=== PATIENT | male | born 1960 | race Caucasian/White ===

== ENCOUNTER 2017-08-19 16:19 | Emergency (ER) | payer OTHER ==
[~2017-08-19] VITALS: Ht 172.7 cm; Wt 81.4 kg
[~2017-08-19 16:19] MED LIST: AMLO10TA55 PO; CLIN300C9 PO; DIVA250T25 PO; FOLI1TAB15 PO; INSLAN SQ; PALI3 PO
[2017-08-19] MEDS ORDERED: OLAN10TA6 PO (16:36)
[2017-08-19] MEDS ORDERED: DIVA500T35 PO (16:36)
[2017-08-19] MEDS ORDERED: OLAN20TA2 PO (16:36)
[2017-08-19] MEDS ORDERED: ACETAMINOPHEN 500 MG TABLET PO ONE (16:45)
[2017-08-19] MEDS ORDERED: INSULIN REGULAR, HUMAN 100 UNITS/ML IVP ONE (16:45)
[2017-08-19] MEDS ORDERED: SODIUM CHLORIDE 0.9% 1,000 ML IV ONE (16:45)
[2017-08-19 17:24] LABS: ANION GAP 9 mmol/L (8-16); CALCIUM, TOTAL 9.1 mg/dL (8.8-10.5); CARBON DIOXIDE 29 mmol/L (22-29); CHLORIDE 98 mmol/L (98-107); CREATININE 0.89 mg/dL (0.60-1.30); GLOMERULAR FILTR. RATE CALC > 60 mL/min (>60); POTASSIUM 4.2 mmol/L (3.5-5.1); SODIUM SERUM 136 mmol/L (136-145); UREA NITROGEN, BLOOD 24 mg/dL (7-18)
[2017-08-19 17:47] VITALS: BP 160/80
[2017-08-19 17:47] LABS: GLUCOSE,RANDOM 430 mg/dL (70-110)
[2017-08-19 18:23] LABS: GLUCOSE,POINT OF CARE 234 MG/DL (70-110)
== END 2017-08-19 18:55 | disposition home or self-care (01) ==
LOC: EMS 16:20
DX: S80.01XA Contusion of right knee, initial encounter (principal); E11.65 Type 2 diabetes mellitus with hyperglycemia; E78.00 Pure hypercholesterolemia, unspecified; K21.9 Gastro-esophageal reflux disease without esophagitis; I10 Essential (primary) hypertension; F17.210 Nicotine dependence, cigarettes, uncomplicated; Z79.4 Long term (current) use of insulin; W10.8XXA Fall (on) (from) other stairs and steps, initial encounter; Y93.89 Activity, other specified; Y92.89 Other specified places as the place of occurrence of the external cause; Y99.8 Other external cause status
CPT/HCPCS: 36415; 73562; 80048; 82948; 82962; 96374; 99285; J1815; J7030